=== PATIENT | female | born 1995 | race Caucasian/White ===

== ENCOUNTER 2017-09-07 15:52 | Emergency (ER) | payer OTHER ==
[~2017-09-07] VITALS: Ht 149.9 cm; Wt 44.5 kg
[2017-09-07 16:08] VITALS: BP_SYST 140
[2017-09-07] MEDS ORDERED: ONDANSETRON 4 MG ODT TAB PO ONE (17:30)
[2017-09-07] MEDS ORDERED: KETOROLAC TROMETHAMINE 60 MG/2 ML VIAL IM ONE (17:30)
[2017-09-07 18:29] LABS: BILIRUBIN,URINE NEGATIVE (NEGATIVE); BLOOD, URINE NEGATIVE (NEGATIVE); CLARITY/URINE HAZY (CLEAR); COLOR,URINE ORANGE (YELLOW); GLUCOSE,URINE TRACE (NEGATIVE); KETONES,URINE NEGATIVE (NEGATIVE); LEUKOCYTE ESTERASE ,URINE NEGATIVE (NEGATIVE); NITRITE, URINE POSITIVE (NEGATIVE); PROTEIN URINE NEGATIVE (NEGATIVE)
[2017-09-07 18:45] LABS: BACTERIA,URINE FEW /HPF (None Seen); MUCUS,URINE None Seen /LPF (None Seen); RBC,URINE NONE SEEN /HPF (0-3); WBC,URINE 0-3 /HPF (0-3)
[2017-09-07 18:50] VITALS: BP_SYST 135
== END 2017-09-07 18:45 | disposition home or self-care (01) ==
LOC: SED 15:52
DX: N39.0 Urinary tract infection, site not specified (principal); Z90.49 Acquired absence of other specified parts of digestive tract
CPT/HCPCS: 51702; 81000; 87086; 96372; 99284; J1885; Q0162

== ENCOUNTER 2019-01-30 18:51 | Emergency (ER) | payer OTHER ==
[~2019-01-30] VITALS: Ht 149.9 cm; Wt 52.6 kg
[2019-01-30 19:12] VITALS: BP_SYST 117
[2019-01-30] MEDS ORDERED: DEXAMETHASONE SOD PHOSPHATE 10 MG/ML VIAL IM ONE (20:45)
[2019-01-30 21:15] VITALS: BP_SYST 110
== END 2019-01-30 21:15 | disposition home or self-care (01) ==
LOC: SED 18:51
DX: N61.0 Mastitis without abscess (principal); L04.0 Acute lymphadenitis of face, head and neck; J20.9 Acute bronchitis, unspecified; K21.9 Gastro-esophageal reflux disease without esophagitis
CPT/HCPCS: 99283; J1100